=== PATIENT | female | born 1960 | race Caucasian/White ===

== ENCOUNTER 2017-09-07 19:00 | Observation (INO) | payer OTHER ==
[~2017-09-07] VITALS: Ht 167.6 cm; Wt 66.0 kg
[~2017-09-07 19:00] MED LIST: ASPI325T PO; COMMODE 3-IN-11 MIS; ENOX40P SQ; LISI10TA3 PO; NORC5TAB PO; WALKER WHEELS/F1 MIS
[2017-09-07 19:03] VITALS: BP 180/83; PULSE 74; RESP 15; TEMP 98.6; O2SAT 97
[2017-09-07] MEDS ORDERED: GABA100C4 PO (19:14)
[2017-09-07] MEDS ORDERED: LISI-515 PO (19:14)
[2017-09-07] MEDS ORDERED: SODIUM CHLORIDE 0.9% FLUSH 10 ML FLUSH IVF PRN (20:30)
[2017-09-07] MEDS ORDERED: NITROGLYCERIN 2% OINT 1 GM PACKET TOP ONE (20:30)
[2017-09-07] MEDS ORDERED: ASPIRIN 81 MG CHEW TAB PO ONE ×2 (20:30→22:00)
[2017-09-07 20:45] VITALS: PULSE 63; RESP 16; O2SAT 98
--- NOTE | 2017-09-07 20:50 | PD ---
HPI Chief Complaint: Chest Pain Time Seen by Provider: 20:29 Travel History International Travel<30 days: No Contact w/Intl Traveler<30days: No Traveled to known affect area: No History of Present Illness HPI has been on lisinopril 10mg for years and well under control however, started to have elevated bp as high as 190/150, called dr madrid who increased lisinopril to 20mg per day...however today started to develop, left sided chest pressure, rad to arms, 04/21, denies sob/anna/abdpain/fever/cough/uri sx/ pcp dr madrid pmhx: htn, smokes 1/2 ppd x 15years PFSH Past Medical History Cancer: No Cardiovascular Problems: Yes (HTN) High Cholesterol: Yes Diabetes: No Endocrine: No Genitourinary: No Hepatitis: No Hiatal Hernia: No Hypertension: Yes Immune Disorder: No Musculoskeletal: Yes (arthritis) Neurologic: Yes Psychiatric: No Reproductive: No Respiratory: No Thyroid Disease: No Tetanus Vaccination: Unknown Influenza Vaccination: No Past Surgical History AICD: No Body Medical Devices: 3 plates in head on l side Gynecologic Surgery: Yes (hysterectomy) Hysterectomy: Yes Joint Replacement: No Neurologic Surgery: Yes (brain surgery with plates) Pacemaker: No Social History Alcohol Use: No Tobacco Use: Yes Substance Use: No Allergies-Medications (Allergen,Severity, Reaction): Coded Allergies: procaine (Unverified Allergy, Severe, Itching, 06/26/17) Reported Meds & Prescriptions Reported Meds & Active Scripts Active Reported Gabapentin 100 Mg Cap 100 Mg PO TID Lisinopril 20 Mg Tab 20 Mg PO DAILY Review of Systems Except as stated in HPI: all other systems reviewed are Neg General / Constitutional: No: Fever Eyes: No: Visual changes HENT: No: Headaches Cardiovascular: Positive: Chest Pain or Discomfort Respiratory: No: Shortness of Breath Gastrointestinal: No: Abdominal Pain Genitourinary: No: Dysuria Musculoskeletal: No: Pain Skin: No Rash Neurologic: No: Weakness Psychiatric: No: Depression Endocrine: No: Polydipsia Hematologic/Lymphatic: No: Easy Bruising Physical Exam Narrative GENERAL: SKIN: Warm and dry. HEAD: Atraumatic. Normocephalic. EYES: Pupils equal and round. No scleral icterus. No injection or drainage. ENT: No nasal bleeding or discharge. Mucous membranes pink and moist. NECK: Trachea midline. No JVD. CARDIOVASCULAR: Regular rate and rhythm. RESPIRATORY: No accessory muscle use. Clear to auscultation. Breath sounds equal bilaterally. GASTROINTESTINAL: Abdomen soft, non-tender, nondistended. MUSCULOSKELETAL: Extremities without clubbing, cyanosis, or edema. No obvious deformities. NEUROLOGICAL: Awake and alert. No obvious cranial nerve deficits. Motor grossly within normal limits. Five out of 5 muscle strength in the arms and legs. Normal speech. PSYCHIATRIC: Appropriate mood and affect; insight and judgment normal. Data Data Last Documented VS Vital Signs Date Time Temp Pulse Resp B/P (MAP) Pulse Ox O2 Delivery O2 Flow Rate FiO2 09/07/17 20:45 98 Nasal Cannula 2.00 09/07/17 20:45 63 16 09/07/17 19:03 98.6 Orders Orders Electrocardiogram (09/07/17 19:16) B-Type Natriuretic Peptide (09/07/17 20:29) Ckmb (Isoenzyme) Profile (09/07/17 20:29) Complete Blood Count With Diff (09/07/17 20:29) Comprehensive Metabolic Panel (09/07/17 20:29) Prothrombin Time / Inr (Pt) (09/07/17 20:29) Act Partial Throm Time (Ptt) (09/07/17 20:29) Troponin I (09/07/17 20:29) Chest, Single Ap (09/07/17 20:29) Ecg Monitoring (09/07/17 20:29) Bilateral Bp Monitoring (09/07/17 20:29) Iv Access Insert/Monitor (09/07/17 20:29) Oximetry (09/07/17 20:29) Oxygen Administration (09/07/17 20:29) Aspirin Chew (Aspirin Chew) (09/07/17 20:30) Nitroglycerin 2% Oint (Nitroglycerin 2% (09/07/17 20:30) Sodium Chloride 0.9% Flush (Ns Flush) (09/07/17 20:30) Admit Order (Ed Use Only) (09/07/17 21:49) Furniture Restorer / Telemetry RENNY.Q8H (09/07/17 21:49) Diet Npo (09/08/17 Breakfast) Activity Bed Rest (09/07/17 21:49) Notify Dr: Other (09/07/17 21:49) Labs Laboratory Tests Test 09/07/17 20:50 White Blood Count 8.1 TH/MM3 Red Blood Count 4.25 MIL/MM3 Hemoglobin 13.9 GM/DL Hematocrit 41.2 % Mean Corpuscular Volume 97.0 FL Mean Corpuscular Hemoglobin 32.7 PG Mean Corpuscular Hemoglobin Concent 33.7 % Red Cell Distribution Width 13.7 % Platelet Count 387 TH/MM3 Mean Platelet Volume 6.9 FL Neutrophils (%) (Auto) 48.9 % Lymphocytes (%) (Auto) 39.5 % Monocytes (%) (Auto) 8.0 % Eosinophils (%) (Auto) 2.6 % Basophils (%) (Auto) 1.0 % Neutrophils # (Auto) 4.0 TH/MM3 Lymphocytes # (Auto) 3.2 TH/MM3 Monocytes # (Auto) 0.6 TH/MM3 Eosinophils # (Auto) 0.2 TH/MM3 Basophils # (Auto) 0.1 TH/MM3 CBC Comment DIFF FINAL Differential Comment Prothrombin Time 10.0 SEC Prothromb Time International Ratio 0.9 RATIO Activated Partial Thromboplast Time 27.9 SEC Blood Urea Nitrogen 16 MG/DL Creatinine 0.91 MG/DL Random Glucose 83 MG/DL Total Protein 7.1 GM/DL Albumin 3.9 GM/DL Calcium Level 9.4 MG/DL Alkaline Phosphatase 78 U/L Aspartate Amino Transf (AST/SGOT) 14 U/L Alanine Aminotransferase (ALT/SGPT) 12 U/L Total Bilirubin 0.1 MG/DL Sodium Level 142 MEQ/L Potassium Level 3.8 MEQ/L Chloride Level 107 MEQ/L Carbon Dioxide Level 28.0 MEQ/L Anion Gap 7 MEQ/L Estimat Glomerular Filtration Rate 64 ML/MIN Total Creatine Kinase 54 U/L Troponin I LESS THAN 0.02 NG/ML B-Type Natriuretic Peptide 8 PG/ML MDM Medical Decision Making Medical Screen Exam Complete: Yes Emergency Medical Condition: Yes Medical Record Reviewed: Yes Interpretation(s) nsr 66, no stemi, nl intervals Differential Diagnosis mi v nonstemi v pna v ptx Narrative Course the patient's description of symptoms were worrisome for ACS atypical as it may be. currently low risk based onn ekg/troponin lab values, no alternative diagnosis of (pna/ptx/pancreatitis, biliary or gi issues)...i believe it prudent to have patient evaluated further via chest pain center. pt currently symptom free. Diagnosis Primary Impression: chest pain r/o mi Admitting Information Admitting Physician Requests: Observation Parmjit David MD Sep 07, 2017 20:50
--- NOTE | 2017-09-07 21:04 | RADRPT ---
EXAM DATE/TIME: 09/07/2017 20:43 [facility] COMPARISON: No previous studies available for comparison. INDICATIONS : Chest pain for 6 hours MEDICAL HISTORY : None. SURGICAL HISTORY : None. ENCOUNTER: Initial ACUITY: 1 day PAIN SCORE: 7/10 LOCATION: Left chest FINDINGS: A single view of the chest demonstrates the lungs to be symmetrically aerated without evidence of mas s, infiltrate or effusion. The cardiomediastinal contours are unremarkable. Osseous structures are intact. CONCLUSION: No acute disease. Shashank Hassan MD on September 07, 2017 at 21:01 Board Certified Radiologist. This report was verified electronically.
[2017-09-07 21:27] LABS: APTT (PATIENT) 27.9 SEC (24.3-30.1); INTERNATIONAL NORMALIZED RATIO 0.9 RATIO
[2017-09-07 21:28] LABS: BASOPHIL # 0.1 TH/MM3 (0-0.2); EOSINOPHIL # 0.2 TH/MM3 (0-0.4); EOSINOPHIL % 2.6 % (0.0-4.0); HEMATOCRIT 41.2 % (35.0-46.0); HEMO FLAGS DIFF FINAL; LYMPH % 39.5 % (9.0-44.0); LYMPHOCYTE # 3.2 TH/MM3 (1.0-4.8); MEAN CORPUSCULAR HEMOGLOBIN 32.7 PG (27.0-34.0); MEAN CORPUSCULAR HGB CONC 33.7 % (32.0-36.0); NEUT % 48.9 % (16.0-70.0); PLATELET COUNT 387 TH/MM3 (150-450); RED BLOOD COUNT 4.25 MIL/MM3 (4.00-5.30); RED CELL DISTRIBUTION WIDTH 13.7 % (11.6-17.2); WHITE BLOOD COUNT 8.1 TH/MM3 (4.0-11.0)
[2017-09-07 21:31] LABS: ANION GAP 7 MEQ/L (5-15); AST (GOT) 14 U/L (15-37); BLOOD UREA NITROGEN 16 MG/DL (7-18); CHLORIDE 107 MEQ/L (98-107); GLOMERULAR FILTRATION RATE 64 ML/MIN (>89); POTASSIUM 3.8 MEQ/L (3.5-5.1); SODIUM (NA) 142 MEQ/L (136-145)
[2017-09-07 21:32] LABS: ALT (GPT) 12 U/L (10-53)
[2017-09-07 21:35] LABS: ALKALINE PHOSPHATASE 78 U/L (45-117); TOTAL BILIRUBIN ADULT 0.1 MG/DL (0.2-1.0)
[2017-09-07 21:36] LABS: CREATINE KINASE 54 U/L (26-192)
[2017-09-07] MEDS ORDERED: NITROGLYCERIN 0.4 MG SL 25 TABS/BTL SL PRN (22:00)
[2017-09-07 22:19] VITALS: BP 141/77; PULSE 61; RESP 16; O2SAT 98
[2017-09-08] VITALS (9 sets, daily range): BP systolic 116–142; BP diastolic 62–73; PULSE 54–73; RESP 18; TEMP 98.1–98.5; O2SAT 96–97
[2017-09-08 01:26] LABS: CREATINE KINASE 63 U/L (26-192)
[2017-09-08 03:36] LABS: CREATINE KINASE 44 U/L (26-192)
[2017-09-08] MEDS ORDERED: SODIUM CHLORIDE 0.9% FLUSH 10 ML FLUSH IV FLUSH SCH (09:00)
[2017-09-08] MEDS ORDERED: ACETAMINOPHEN 500 MG CPLT PO PRN (09:45)
[2017-09-08] MEDS ORDERED: MORPHINE SULFATE 4 MG/ML INJ IV PUSH PRN (09:45)
[2017-09-08] MEDS ORDERED: ONDANSETRON HCL 4 MG/2 ML VIAL IV PUSH PRN (09:45)
[2017-09-08] MEDS ORDERED: ASPIRIN 81 MG CHEW TAB PO ONE (09:45)
--- NOTE | 2017-09-08 10:57 | EKG ---
Date Performed: 09/07/2017 Time Performed: 19:17:55 PTAGE: 57 years EKG: Sinus rhythm LOW QRS VOLTAGE IN PRECORDIAL LEADS BORDERLINE ECG NO CHANGE PREVIOUS TRACING : 10/11/2016 06.24 DOCTOR: Kranthi Gallegos Interpretating Date/Time 09/08/2017 10:56:51
--- NOTE | 2017-09-08 11:02 | EKG ---
Date Performed: 09/08/2017 Time Performed: 03:01:27 PTAGE: 57 years EKG: SINUS BRADYCARDIA BORDERLINE ECG NO SIG CHANGE PREVIOUS TRACING : 09/08/2017 00.40 DOCTOR: Kranthi Gallegos Interpretating Date/Time 09/08/2017 11:01:24
--- NOTE | 2017-09-08 11:02 | EKG ---
Date Performed: 09/08/2017 Time Performed: 00:40:57 PTAGE: 57 years EKG: SINUS BRADYCARDIA POSSIBLE RIGHT VENTRICULAR CONDUCTION DELAY BORDERLINE ECG V2 T WAVE INVE RSION NEW PREVIOUS TRACING : 09/07/2017 19.17 DOCTOR: Kranthi Gallegos Interpretating Date/Time 09/08/2017 11:00:38
--- NOTE | 2017-09-08 11:32 | HHI.HP ---
HPI Primary Care Physician Heriberto Lerma, Chief Complaint CHEST PRESSURE H/A HTN History of Present Illness 57 YO LADY WITH LONG HISTORY OF HTN AND DIFFICULTY CONTROLING RECENTLY NOTED ONSET OF H/A ABOUT A MONTH AGO. HER PCP ALTERED MEDS FOR THIS AND HTN ABOUT A WEEK ABO. ON SUNDAY AT LUNCH SHE DEVELOPED "HEART BURN" LIKE PAIN IN HER LEFT CHEST AND UNDER HER LEFT AXILLY. THIS WAS A CONSTANT ACHE 3/10 WORSENING TO 5/ 10 BY ABOUT 8 PM WHEN SHE CAME TO THE ED. Review of Systems RECENT HEADACHES Past Family Social History Allergies: Coded Allergies: procaine (Unverified Allergy, Severe, Itching, 06/26/17) Reported Medications Reported Meds & Active Scripts Active Reported Gabapentin 100 Mg Cap 100 Mg PO TID Lisinopril 20 Mg Tab 20 Mg PO DAILY Active Ordered Medications Current Medications Medications (Trade) Dose Ordered Sig/Dustin Route Start Time Stop Time Status Last Admin (NS Flush) 2 ml UNSCH PRN IVF 09/07/17 20:30 (NS Flush) 2 ml BID IV FLUSH 09/08/17 09:00 09/08/17 09:26 (Nitrostat Sl) 0.4 mg Q5M PRN SL 09/07/17 22:00 (Tylenol) 500 mg Q4H PRN PO 09/08/17 09:45 09/08/17 10:07 (Morphine Inj) 2 mg Q4H PRN IV PUSH 09/08/17 09:45 (Zofran Inj) 4 mg Q6H PRN IV PUSH 09/08/17 09:45 (Protonix) 40 mg DAILY PO 09/09/17 09:00 Family History FATHER AND MOTHER FATHER HAD FIRST MA AT AGE 57 Social History SMOKES ABOUT 1/2 PPD NO ALCOHOL OR DRUGS Physical Exam Vital Signs Vital Signs Date Time Temp Pulse Resp B/P (MAP) Pulse Ox O2 Delivery O2 Flow Rate FiO2 09/08/17 09:46 97 Nasal Cannula 2.00 09/08/17 07:30 98.2 70 18 125/73 (90) 97 09/08/17 06:31 98.2 58 18 142/65 (90) 96 09/08/17 04:00 54 09/08/17 00:49 98.1 73 18 116/62 (80) 96 09/08/17 00:47 60 09/07/17 23:00 09/07/17 22:19 61 16 141/77 (98) 98 Nasal Cannula 2.00 09/07/17 20:45 98 Nasal Cannula 2.00 09/07/17 20:45 63 16 98 Nasal Cannula 2.00 09/07/17 19:03 98.6 74 15 180/83 (115) 97 Room Air Physical Exam GENERAL: WNWD SKIN: Warm and dry. HEAD: Atraumatic. Normocephalic. SCAR L FRONTAL FROM SURGERY EYES: Pupils equal and round. No scleral icterus. No injection or drainage. ENT: No nasal bleeding or discharge. Mucous membranes pink and moist. NECK: Trachea midline. No JVD. CARDIOVASCULAR: Regular rate and rhythm. RESPIRATORY: No accessory muscle use. Clear to auscultation. Breath sounds equal bilaterally. GASTROINTESTINAL: Abdomen soft, non-tender, nondistended. Hepatic and splenic margins not palpable. MUSCULOSKELETAL: Extremities without clubbing, cyanosis, or edema. No obvious deformities. NEUROLOGICAL: Awake and alert. No obvious cranial nerve deficits. Motor grossly within normal limits. Five out of 5 muscle strength in the arms and legs. Normal speech. PSYCHIATRIC: Appropriate mood and affect; insight and judgment normal. Laboratory Laboratory Tests Test 09/07/17 20:50 09/08/17 00:25 09/08/17 02:50 09/08/17 10:35 White Blood Count 8.1 Red Blood Count 4.25 Hemoglobin 13.9 Hematocrit 41.2 Mean Corpuscular Volume 97.0 Mean Corpuscular Hemoglobin 32.7 Mean Corpuscular Hemoglobin Concent 33.7 Red Cell Distribution Width 13.7 Platelet Count 387 Mean Platelet Volume 6.9 Neutrophils (%) (Auto) 48.9 Lymphocytes (%) (Auto) 39.5 Monocytes (%) (Auto) 8.0 Eosinophils (%) (Auto) 2.6 Basophils (%) (Auto) 1.0 Neutrophils # (Auto) 4.0 Lymphocytes # (Auto) 3.2 Monocytes # (Auto) 0.6 Eosinophils # (Auto) 0.2 Basophils # (Auto) 0.1 CBC Comment DIFF FINAL Differential Comment Prothrombin Time 10.0 Prothromb Time International Ratio 0.9 Activated Partial Thromboplast Time 27.9 Blood Urea Nitrogen 16 Creatinine 0.91 Random Glucose 83 Total Protein 7.1 Albumin 3.9 Calcium Level 9.4 Alkaline Phosphatase 78 Aspartate Amino Transf (AST/SGOT) 14 Alanine Aminotransferase (ALT/SGPT) 12 Total Bilirubin 0.1 Sodium Level 142 Potassium Level 3.8 Chloride Level 107 Carbon Dioxide Level 28.0 Anion Gap 7 Estimat Glomerular Filtration Rate 64 Total Creatine Kinase 54 63 44 Troponin I LESS THAN 0.02 LESS THAN 0.02 LESS THAN 0.02 B-Type Natriuretic Peptide 8 Result Diagram: 09/07/17204909/07/172049 Caprini VTE Risk Assessment Caprini VTE Risk Assessment: No/Low Risk (score <= 1) Caprini Risk Assessment Model Point Value = 1 Point Value = 2 Point Value = 3 Point Value = 5 Age 41-60 Minor surgery BMI > 25 kg/m2 Swollen legs Varicose veins or History of unexplained or recurrent spontaneous Oral contraceptives or hormone replacement Sepsis (< 1 month) Serious lung disease, including pneumonia (< 1 month) Abnormal pulmonary function Acute myocardial infarction Congestive heart failure (< 1 month) History of inflammatory bowel disease Medical patient at bed rest Age 61-74 Arthroscopic surgery Major open surgery (> 45 min) Laparoscopic surgery (> 45 min) Malignancy Confined to bed (> 72 hours) Immobilizing plaster cast Central venous access Age >= 75 History of VTE Family history of VTE Factor V Leiden Prothrombin 26109B Lupus anticoagulant Anticardiolipin antibodies Elevated serum homocysteine Heparin-induced thrombocytopenia Other congenital or acquired thrombophilia Stroke (< 1 month) Elective arthroplasty Hip, pelvis, or leg fracture Acute spinal cord injury (< 1 month) Prophylaxis Regimen Total Risk Factor Score Risk Level Prophylaxis Regimen 0-1 Low Early ambulation 2 Moderate Order ONE of the following: *Sequential Compression Device (SCD) *Heparin 5000 units SQ BID 3-4 Higher Order ONE of the following medications: *Heparin 5000 units SQ TID *Enoxaparin/Lovenox 40 mg SQ daily (WT < 150 kg, CrCl > 30 mL/min) *Enoxaparin/Lovenox 30 mg SQ daily (WT < 150 kg, CrCl > 10-29 mL/min) *Enoxaparin/Lovenox 30 mg SQ BID (WT < 150 kg, CrCl > 30 mL/min) AND/OR *Sequential Compression Device (SCD) 5 or more Highest Order ONE of the following medications: *Heparin 5000 units SQ TID (Preferred with Epidurals) *Enoxaparin/Lovenox 40 mg SQ daily (WT < 150 kg, CrCl > 30 mL/min) *Enoxaparin/Lovenox 30 mg SQ daily (WT < 150 kg, CrCl > 10-29 mL/min) *Enoxaparin/Lovenox 30 mg SQ BID (WT < 150 kg, CrCl > 30 mL/min) AND *Sequential Compression Device (SCD) Assessment and Plan Assessment and Plan ATYPICAL CP BUT MINIMAL EKG CHANGES. WILL NEED ETT Code Status FULL CODE Discussed Condition With PT AND Kranthi Gallegos MD Sep 08, 2017 11:32
[2017-09-08 12:12] LABS: CREATINE KINASE 47 U/L (26-192)
--- NOTE | 2017-09-08 15:31 | TR ---
Date Performed: 09/08/2017 Time Performed: 11:49:24 DOCTOR: Kranthi Gallegos DRUG LIST: CLINICAL HISTORY: REASON FOR TEST: REASON FOR ENDING: OBSERVATION: CONCLUSION: Patient exercised using the Valentin protocol. No electrocardiographic changes were see n to suggest ischemia. Hemodynamic response to exercise was normal. No significant arrhythmia was pre sent. COMMENTS:
[2017-09-09] MEDS ORDERED: PANTOPRAZOLE SOD 40 MG DELAYED RELEASE TAB PO SCH (09:00)
== END 2017-09-08 13:18 | disposition home or self-care (01) ==
LOC: NEPD 19:00 → NEDA 21:51 → NEPHCDU 22:44
PROVIDERS: ADMIT Internal Medicine Cardiovascular Disease; ATTEND Internal Medicine Cardiovascular Disease
DX: R07.89 Other chest pain (principal); I10 Essential (primary) hypertension; R51 Headache; R94.31 Abnormal electrocardiogram [ECG] [EKG]; E78.00 Pure hypercholesterolemia, unspecified; Z72.0 Tobacco use
CPT/HCPCS: 71010; 80053; 82550; 83880; 84484; 85025; 85610; 85730; 93005; 93017; 99285; G0378